=== PATIENT | male | born 1990 | race Caucasian/White ===

== ENCOUNTER 2016-10-19 17:03 | Emergency (ER) | payer OTHER ==
[~2016-10-19] VITALS: Ht 180.3 cm; Wt 97.5 kg
[2016-10-19 17:08] VITALS: BP 121/85; PULSE 60; RESP 16; TEMP 98; O2SAT 99
[2016-10-19 18:05] VITALS: BP 146/74; PULSE 59; RESP 16; O2SAT 98
[2016-10-19 18:10] LABS: AUTOMATED NEUTROPHIL # 3.6 TH/MM3 (1.8-7.7); BASOPHIL # 0.1 TH/MM3 (0-0.2); BASOPHIL % 1.2 % (0.0-2.0); EOSINOPHIL # 0.2 TH/MM3 (0-0.4); EOSINOPHIL % 2.5 % (0.0-4.0); HEMATOCRIT 44.8 % (39.0-51.0); HEMO FLAGS DIFF FINAL; LYMPH % 34.9 % (9.0-44.0); LYMPHOCYTE # 2.4 TH/MM3 (1.0-4.8); MEAN CELL VOLUME 82.3 FL (80.0-100.0); MEAN CORPUSCULAR HEMOGLOBIN 27.6 PG (27.0-34.0); MEAN CORPUSCULAR HGB CONC 33.6 % (32.0-36.0); NEUT % 53.4 % (16.0-70.0); PLATELET COUNT 161 TH/MM3 (150-450); RED BLOOD COUNT 5.44 MIL/MM3 (4.50-5.90); RED CELL DISTRIBUTION WIDTH 11.5 % (11.6-17.2); WHITE BLOOD COUNT 6.9 TH/MM3 (4.0-11.0)
[2016-10-19 18:18] LABS: POTASSIUM 3.8 MEQ/L (3.5-5.1)
[2016-10-19 18:21] LABS: BICARBONATE 29.4 MEQ/L (21.0-32.0)
[2016-10-19 18:32] LABS: BLOOD, URINE NEG (NEG); GLUCOSE,URINE NEG (NEG); KETONE, URINE NEG (NEG); NITRITE,URINE NEG (NEG)
[2016-10-19] MEDS ORDERED: IBUPROFEN 600 MG TAB PO ONE (18:45)
--- NOTE | 2016-10-19 18:47 | PD ---
HPI Chief Complaint: Abdominal Pain Time Seen by Provider: 17:17 Travel History International Travel<30 days: No Contact w/Intl Traveler<30days: No Traveled to known affect area: No History of Present Illness HPI 26yo M with no PMH presents to the ED with c/o left inguinal pain that is intermittent for 3 weeks. States it is throbbing and goes to left lower back. Denies any fever, chest pain, sob, n/v, abdominal pain, testicular pain, penile discharge or rash, trauma, focal weakness or numbness, urinary complaints. PFSH Past Medical History Medical History: Denies Significant Hx Diminished Hearing: No Tetanus Vaccination: Unknown Past Surgical History Oral Surgery: Yes (WISDOM TEETH) Social History Alcohol Use: No Tobacco Use: No Substance Use: No Allergies-Medications (Allergen,Severity, Reaction): Coded Allergies: No Known Allergies (Unverified , 10/19/16) Reported Meds & Prescriptions Reported Meds & Active Scripts Active No Active Prescriptions or Reported Medications Review of Systems Except as stated in HPI: all other systems reviewed are Neg Physical Exam Narrative GENERAL: 26yo M not in distress. SKIN: Focused skin assessment warm/dry. HEAD: Atraumatic. Normocephalic. CARDIOVASCULAR: Regular rate and rhythm. No murmur appreciated. RESPIRATORY: No accessory muscle use. Clear to auscultation. Breath sounds equal bilaterally. GASTROINTESTINAL: Abdomen soft, non-tender, nondistended. No rebound tenderness or guarding. : States pain is in left inguinal region, no erythema, or mass. No hernia palpated. No testicular ttp. No penile discharge or rash. BACK: No midline ttp. left paraspinal ttp L4-5. No CVA tenderness bilaterally. MUSCULOSKELETAL: No obvious deformities. No clubbing. No cyanosis. No edema. NEUROLOGICAL: Awake and alert. No obvious cranial nerve deficits. Motor grossly within normal limits. Normal speech. PSYCHIATRIC: Appropriate mood and affect; insight and judgment normal. Data Data Last Documented VS Vital Signs Date Time Temp Pulse Resp B/P Pulse Ox O2 Delivery O2 Flow Rate FiO2 10/19/16 17:08 98.0 60 16 121/85 99 Orders Urinalysis - C+S If Indicated (10/19/16 17:11) Complete Blood Count With Diff (10/19/16 17:36) Basic Metabolic Panel (Bmp) (10/19/16 17:36) Ibuprofen (Motrin) (10/19/16 18:45) Labs Laboratory Tests Test 10/19/16 10/19/16 18:00 18:15 White Blood Count 6.9 TH/MM3 Red Blood Count 5.44 MIL/MM3 Hemoglobin 15.0 GM/DL Hematocrit 44.8 % Mean Corpuscular Volume 82.3 FL Mean Corpuscular Hemoglobin 27.6 PG Mean Corpuscular Hemoglobin 33.6 % Concent Red Cell Distribution Width 11.5 % Platelet Count 161 TH/MM3 Mean Platelet Volume 9.6 FL Neutrophils (%) (Auto) 53.4 % Lymphocytes (%) (Auto) 34.9 % Monocytes (%) (Auto) 8.0 % Eosinophils (%) (Auto) 2.5 % Basophils (%) (Auto) 1.2 % Neutrophils # (Auto) 3.6 TH/MM3 Lymphocytes # (Auto) 2.4 TH/MM3 Monocytes # (Auto) 0.6 TH/MM3 Eosinophils # (Auto) 0.2 TH/MM3 Basophils # (Auto) 0.1 TH/MM3 CBC Comment DIFF FINAL Differential Comment Sodium Level 140 MEQ/L Potassium Level 3.8 MEQ/L Chloride Level 101 MEQ/L Carbon Dioxide Level 29.4 MEQ/L Anion Gap 10 MEQ/L Blood Urea Nitrogen 18 MG/DL Creatinine 0.95 MG/DL Estimat Glomerular Filtration 97 ML/MIN Rate Random Glucose 95 MG/DL Calcium Level 8.9 MG/DL Urine Color YELLOW Urine Turbidity CLEAR Urine pH 6.0 Urine Specific [place] 1.015 Urine Protein NEG mg/dL Urine Glucose (UA) NEG mg/dL Urine Ketones NEG mg/dL Urine Occult Blood NEG Urine Nitrite NEG Urine Bilirubin NEG Urine Leukocyte Esterase NEG Urine Squamous Epithelial 0-5 /hpf Cells Microscopic Urinalysis Comment CULT NOT INDICATED MDM Medical Decision Making Medical Screen Exam Complete: Yes Emergency Medical Condition: Yes Interpretation(s) Laboratory Tests Test 10/19/16 10/19/16 18:00 18:15 White Blood Count 6.9 TH/MM3 (4.0-11.0) Red Blood Count 5.44 MIL/MM3 (4.50-5.90) Hemoglobin 15.0 GM/DL (13.0-17.0) Hematocrit 44.8 % (39.0-51.0) Mean Corpuscular Volume 82.3 FL (80.0-100.0) Mean Corpuscular Hemoglobin 27.6 PG (27.0-34.0) Mean Corpuscular Hemoglobin 33.6 % Concent (32.0-36.0) Red Cell Distribution Width 11.5 % (11.6-17.2) Platelet Count 161 TH/MM3 (150-450) Mean Platelet Volume 9.6 FL (7.0-11.0) Neutrophils (%) (Auto) 53.4 % (16.0-70.0) Lymphocytes (%) (Auto) 34.9 % (9.0-44.0) Monocytes (%) (Auto) 8.0 % (0.0-8.0) Eosinophils (%) (Auto) 2.5 % (0.0-4.0) Basophils (%) (Auto) 1.2 % (0.0-2.0) Neutrophils # (Auto) 3.6 TH/MM3 (1.8-7.7) Lymphocytes # (Auto) 2.4 TH/MM3 (1.0-4.8) Monocytes # (Auto) 0.6 TH/MM3 (0-0.9) Eosinophils # (Auto) 0.2 TH/MM3 (0-0.4) Basophils # (Auto) 0.1 TH/MM3 (0-0.2) CBC Comment DIFF FINAL Differential Comment Sodium Level 140 MEQ/L (136-145) Potassium Level 3.8 MEQ/L (3.5-5.1) Chloride Level 101 MEQ/L (98-107) Carbon Dioxide Level 29.4 MEQ/L (21.0-32.0) Anion Gap 10 MEQ/L (5-15) Blood Urea Nitrogen 18 MG/DL (7-18) Creatinine 0.95 MG/DL (0.60-1.30) Estimat Glomerular Filtration 97 ML/MIN (>89) Rate Random Glucose 95 MG/DL (74-106) Calcium Level 8.9 MG/DL (8.5-10.1) Urine Color YELLOW (YELLW/STRAW) Urine Turbidity CLEAR (CLEAR) Urine pH 6.0 (5.0-8.5) Urine Specific [place] 1.015 (1.002-1.035) Urine Protein NEG mg/dL (NEG-TRACE) Urine Glucose (UA) NEG mg/dL (NEG) Urine Ketones NEG mg/dL (NEG) Urine Occult Blood NEG (NEG) Urine Nitrite NEG (NEG) Urine Bilirubin NEG (NEG) Urine Leukocyte Esterase NEG (NEG) Urine Squamous Epithelial 0-5 /hpf (0-5) Cells Microscopic Urinalysis Comment CULT NOT INDICATED Differential Diagnosis Nephrolithiasis vs. inguinal hernia vs. lymphadenopathy vs. musculoskeletal pain Narrative Course 26 very well appearing male here for intermittent left lower back and inguinal pain for 3 weeks. No trauma. Exam was unremarkable. No tenderness on abdominal exam and I do not see a hernia. Labs reviewed, no leukocytosis. BMP unremarkable. Normal creatinine. UA negative for blood or leukocyte. VS stable. Denies IVDA. Pt given ibuprofen which helped with the pain. Return precautions given. Diagnosis Primary Impression: Back pain Qualified Code: M54.5 - Chronic left-sided low back pain without sciatica Patient Instructions: General Instructions Departure Forms: Tests/Procedures Additional Instructions: Please follow up with your PMD in 3-7 days. Return to the ED if symptoms worsen. Med/Other Pt SpecificInfo: Prescription(s) given Scripts Ibuprofen 600 Mg Wit388 Mg PO Q8HR PRN (PAIN) #20 TAB Ref 0 Prov:Roxana Cobb DO 10/19/16 Disposition: 01 DISCHARGE HOME Condition: Stable Roxana Cobb DO October 19, 2016 18:47
[2016-10-19 19:01] LABS: COMMENT (UR) CULT NOT INDICATED; CULTURE IF INDICATED CULT NOT INDICATED; SQUAMOUS EPITHELIAL CELL URINE 0-5 /hpf (0-5); URINE COLOR YELLOW (YELLW/STRAW)
[2016-10-19] MEDS ORDERED: IBUP-232 PO (19:10)
[2016-10-19 19:29] VITALS: BP 116/70; TEMP 97.9
== END 2016-10-19 19:32 | disposition home or self-care (01) ==
LOC: PHED 17:03
DX: M54.5 Low back pain (principal); R10.32 Left lower quadrant pain
CPT/HCPCS: 80048; 81001; 85025; 99283

== ENCOUNTER 2017-08-12 21:00 | Emergency (ER) | payer OTHER ==
[~2017-08-12 21:00] MED LIST: IBUP-232 PO
[2017-08-12 21:38] VITALS: BP 125/77; PULSE 69; RESP 15; TEMP 98.6; O2SAT 97
[2017-08-12] MEDS ORDERED: AMOXICILLIN/CLAVULANATE K 875 MG TAB PO ONE (22:00)
[2017-08-12] MEDS ORDERED: TETANUS/DIPHTHERIA TOXOID ADULT 0.5 ML VIAL IM ONE (22:00)
[2017-08-12] MEDS ORDERED: AUGM875T3 PO (22:20)
--- NOTE | 2017-08-12 22:20 | PD ---
HPI Chief Complaint: Bite or Sting Time Seen by Provider: 21:44 Travel History International Travel<30 days: No Contact w/Intl Traveler<30days: No Traveled to known affect area: No History of Present Illness HPI 27-year-old male here with a dog bite to the left hand. Injury occurred prior terminal. Patient reports he simply stepped on the dog's foot causing the dog to bite him. The dog is owned by the patient and he is up-to-date on immunizations. He denies paresthesia or weakness in the extremity. He has 2 puncture wounds to the palm. Tetanus immunization is unknown. Severity is mild. Bleeding is well-controlled PFSH Past Medical History Diminished Hearing: No Tetanus Vaccination: Unknown Influenza Vaccination: No ?: Not Past Surgical History Oral Surgery: Yes (WISDOM TEETH) Social History Alcohol Use: No Tobacco Use: No Substance Use: No Allergies-Medications (Allergen,Severity, Reaction): Coded Allergies: No Known Allergies (Unverified , 10/19/16) Reported Meds & Prescriptions Reported Meds & Active Scripts Active Ibuprofen 600 Mg Tab 600 Mg PO Q8HR PRN Review of Systems Except as stated in HPI: all other systems reviewed are Neg Physical Exam Narrative GENERAL: Alert and well-appearing 87-year-old male SKIN: Warm and dry. 2 puncture wounds to the left palm. No active bleeding. HEAD: Normocephalic. EYES: No injection or drainage. NECK: Supple MUSCULOSKELETAL: No cyanosis, or edema. Left hand: 2 puncture wounds to the left palm each measuring less than 0.5 cm. No active bleeding. Wound edges well approximated. Patient can flex and extend all fingers. Normal sensation. Brisk cap refill. Data Data Last Documented VS Vital Signs Date Time Temp Pulse Resp B/P (MAP) Pulse Ox O2 Delivery O2 Flow Rate FiO2 08/12/17 21:38 98.6 69 15 125/77 (93) 97 Orders Orders Tetanus/Diphtheria Tox Adult (Tetanus/Di (08/12/17 22:00) Amoxicil-Clavulanate (Augmentin) (08/12/17 22:00) MDM Medical Decision Making Medical Screen Exam Complete: Yes Emergency Medical Condition: Yes Differential Diagnosis Puncture wound, hand laceration, tendon injury Narrative Course 27-year-old male here with 2 small puncture wounds to left hand. Wound edges are well approximated. Wounds were extensively irrigated. No evidence of tendon injury. Wounds were dressed. Tetanus a musician updated. Patient be placed on Augmentin. Strict follow-up instructions discussed. Patient verbalizes understanding and agrees to plan Diagnosis Primary Impression: Dog bite, hand Qualified Codes: S61.452A - Open bite of left hand, initial encounter; W54.0XXA - Bitten by dog, initial encounter Referrals: Primary Care Physician Additional Instructions: Antibiotics as directed. Wash the area daily with soap and water. Apply thin layer of antibiotic ointment. Apply clean dry dressing. Tylenol and ibuprofen as needed for pain. Return if he developed signs of infection which would include increasing pain, redness, swelling, fever or chills Scripts Amoxicillin-Clavulanate (Augmentin) 875-125 Mg Tab 1 TAB PO BID for Infection, #20 TAB 0 Refills Prov: Emily Fishman 08/12/17 Disposition: 01 DISCHARGE HOME Condition: Stable Emily Fishman Aug 12, 2017 22:20
== END 2017-08-12 22:32 | disposition home or self-care (01) ==
LOC: PHEFT 21:00
DX: S61.452A Open bite of left hand, initial encounter (principal); W54.0XXA Bitten by dog, initial encounter; Z23 Encounter for immunization
CPT/HCPCS: 90471; 90714